=== PATIENT | female | born 1950 | race Caucasian/White ===

== ENCOUNTER → 2024-02-04 12:36 | Outpatient (REF) | payer MEDICARE, OTHER, SELFPAY | LOC: WDC 12:36 | PROVIDERS: ATTENDING PHYSICIAN Physician Assistant; PRIMARYCARE PHYSICIAN Physician Assistant Medical | DX: Z12.31 Encounter for screening mammogram for malignant neoplasm of breast (principal) | CPT/HCPCS: 77063; 77067 ==